=== PATIENT | female | born 1995 | race Caucasian/White ===

== ENCOUNTER 2025-01-04 18:06 | Emergency (ER) | payer OTHER, SELFPAY | END 2025-01-04 19:21 | disposition home or self-care (01) | LOC: MADERS 18:06 | DX: A08.4 Viral intestinal infection, unspecified (principal); R11.2 Nausea with vomiting, unspecified; I10 Essential (primary) hypertension; F17.290 Nicotine dependence, other tobacco product, uncomplicated | CPT/HCPCS: 99283 ==